=== PATIENT | male | born 1995 | race Caucasian/White ===

== ENCOUNTER 2018-10-20 14:00 | Emergency (ER) | payer BC ==
[~2018-10-20] VITALS: Ht 177.8 cm; Wt 68.2 kg
[2018-10-20 14:20] VITALS: BP 140/88; PULSE 93; TEMP 98.5
[2018-10-20] MEDS ORDERED: PROZAC 20MG20 MG PO (15:16)
[2018-10-20] MEDS ORDERED: CIPRO 500MG TA500 MG PO (16:07)
== END 2018-10-20 17:30 | disposition home or self-care (01) ==
LOC: COL.ER 14:00
DX: S41.111A Laceration without foreign body of right upper arm, initial encounter (principal); F32.9 Major depressive disorder, single episode, unspecified; Z23 Encounter for immunization; F12.90 Cannabis use, unspecified, uncomplicated; W59.01XA Bitten by nonvenomous lizards, initial encounter; Y92.59 Other trade areas as the place of occurrence of the external cause

== ENCOUNTER 2018-10-29 11:53 | Emergency (ER) | payer BC ==
[~2018-10-29 11:53] MED LIST: CIPRO 500MG TA500 MG PO; PROZAC 20MG20 MG PO
[2018-10-29 11:58] VITALS: BP 123/82; PULSE 83; TEMP 98.2
== END 2018-10-29 12:15 | disposition home or self-care (01) ==
LOC: COL.ER 11:53
DX: S41.011D Laceration without foreign body of right shoulder, subsequent encounter (principal); X58.XXXD Exposure to other specified factors, subsequent encounter

== ENCOUNTER 2019-02-25 01:32 | Emergency (ER) | payer BC ==
[~2019-02-25] VITALS: Ht 172.7 cm; Wt 59.1 kg
[2019-02-25 01:57] LABS: BASO # 0.1 (0.0-0.2); BASO % 0.4 % (0.0-2.0); EOS # 0.1 (0.0-0.7); EOS % 0.7 % (0-4.0); GRAN # 14.3 (1.4-6.5); GRAN % 86.6 % (42.2-75.2); HEMATOCRIT 48.7 % (42.0-52.0); HEMOGLOBIN 17.3 g/dl (13.5-18.0); LYMPH # 1.3 (1.2-3.4); LYMPH % 7.6 % (20.0-51.0); MEAN CELL VOLUME 86 fl (80.0-100.0); MEAN CORPUSCULAR HEMOGLOBIN 31 pg (27.0-31.0); MEAN CORPUSCULAR HGB CONC 36 g/dl (33.0-37.0); MEAN PLATELET VOLUME 9.2 fl (7.4-10.4); MONO # 0.7 (0.1-0.6); MONO % 4.4 % (1.7-9.3); PLATELET COUNT 274 K/mm3 (130-400); RED BLOOD COUNT 5.64 M/mm3 (4.20-5.60); REDCELL DISTRIBUTION WIDTH-CV 12.7 % (11.5-14.5)
[2019-02-25 02:08] LABS: ALANINE AMINOTRANSFERASE 28 U/L (21-72); ALBUMIN 5.2 gm/dL (3.5-5.0); ALKALINE PHOSPHATASE 83 U/L (50-136); ANION GAP 15 mmol/L (7-16); AST,SGOT 30 U/L (15-37); BILIRUBIN,TOTAL 0.7 mg/dL (0.0-1.0); BLOOD UREA NITROGEN 17 mg/dL (9-20); CARBON DIOXIDE 19 mmol/L (22-30); CHLORIDE 107 mmol/L (98-107); CREATININE, serum 0.93 (0.66-1.25); GLUCOSE 135 mg/dL (74-106); POTASSIUM 3.7 mmol/L (3.4-5.0); SODIUM 141 mmol/L (137-145); TOTAL PROTEIN 8.6 gm/dL (6.4-8.2)
[2019-02-25 02:20] LABS: C-REACTIVE PROTEIN < 0.5 mg/dL (0.0-0.9)
[2019-02-25] MEDS ORDERED: PHENERGAN 25 TA25 MG PO (02:39)
[2019-02-25] MEDS ORDERED: ZOFRAN ODT4 MG PO (02:39)
[2019-02-25 04:41] VITALS: TEMP 98.2
[2019-02-25 05:01] VITALS: BP 142/103; PULSE 108
== END 2019-02-25 05:09 | disposition home or self-care (01) ==
LOC: COL.ER 01:32
PROVIDERS: Nurse Practitioner
DX: A08.11 Acute gastroenteropathy due to Norwalk agent (principal); Z90.89 Acquired absence of other organs; Z88.2 Allergy status to sulfonamides
CPT/HCPCS: J2405; J2550; J3010; J7030; J7120

== ENCOUNTER 2019-05-12 21:52 | Emergency (ER) | payer BC ==
[~2019-05-12] VITALS: Ht 177.8 cm; Wt 81.8 kg
[~2019-05-12 21:52] MED LIST changes: +PHENERGAN 25 TA25 MG PO; +ZOFRAN ODT4 MG PO
[2019-05-12 22:02] VITALS: BP 162/106; TEMP 98.5
[2019-05-12] MEDS ORDERED: LEVAQUIN 5500 MG/TA1 PO (22:41)
[2019-05-12 23:00] VITALS: PULSE 110
== END 2019-05-12 23:15 | disposition home or self-care (01) ==
LOC: COL.ER 21:52
DX: S60.371A Other superficial bite of right thumb, initial encounter (principal); F41.9 Anxiety disorder, unspecified; Z88.0 Allergy status to penicillin; W64.XXXA Exposure to other animate mechanical forces, initial encounter; Y92.009 Unspecified place in unspecified non-institutional (private) residence as the place of occurrence of the external cause